=== PATIENT | female | born 1990 | race African-American/Black ===

== ENCOUNTER 2018-08-26 17:16 | Emergency (ER) | payer MEDICAID ==
[~2018-08-26] VITALS: Ht 170.2 cm; Wt 70.0 kg
[~2018-08-26 17:16] MED LIST: DIVA500T3 PO; LAM25 PO
[2018-08-26 17:19] VITALS: BP 104/69
== END 2018-08-26 20:31 | disposition left against medical advice (07) ==
LOC: ER 17:16
DX: Z53.21 Procedure and treatment not carried out due to patient leaving prior to being seen by health care provider (principal)

== ENCOUNTER 2018-09-11 17:00 | Emergency (ER) | payer MEDICAID ==
[~2018-09-11] VITALS: Ht 165.1 cm; Wt 66.0 kg
[2018-09-11] MEDS ORDERED: KETOROLAC 60MG/2ML VIAL IM ONE (19:30)
[2018-09-11 21:10] VITALS: BP 116/72
== END 2018-09-11 21:12 | disposition home or self-care (01) ==
LOC: ER 17:17
DX: S90.111A Contusion of right great toe without damage to nail, initial encounter (principal); G40.909 Epilepsy, unspecified, not intractable, without status epilepticus; Z88.0 Allergy status to penicillin; W22.8XXA Striking against or struck by other objects, initial encounter; Y93.89 Activity, other specified; Y92.89 Other specified places as the place of occurrence of the external cause
CPT/HCPCS: 73660; 81025; 96372; 99284; J1885

== ENCOUNTER 2018-11-03 01:15 | Emergency (ER) | payer MEDICAID ==
[~2018-11-03] VITALS: Ht 182.9 cm; Wt 72.7 kg
[2018-11-03] MEDS ORDERED: LORAZEPAM 2MG/ML CPJ ONE (02:43)
[2018-11-03 07:30] VITALS: BP 131/75
== END 2018-11-03 09:02 | disposition home or self-care (01) ==
LOC: ER 01:15
DX: R56.9 Unspecified convulsions (principal); Z88.0 Allergy status to penicillin
CPT/HCPCS: 81025; 82962; 99283; J2060

== ENCOUNTER 2019-02-13 18:06 | Emergency (ER) | payer MEDICAID ==
[~2019-02-13] VITALS: Ht 165.1 cm; Wt 81.6 kg
[2019-02-13] MEDS ORDERED: IBUPROFEN 600MG TABLET PO ONE (19:00)
[2019-02-13 20:53] VITALS: BP 103/52
== END 2019-02-13 20:54 | disposition home or self-care (01) ==
LOC: ER 18:06
DX: S63.501A Unspecified sprain of right wrist, initial encounter (principal); G40.909 Epilepsy, unspecified, not intractable, without status epilepticus; F12.10 Cannabis abuse, uncomplicated; Z88.0 Allergy status to penicillin; Z88.6 Allergy status to analgesic agent; X58.XXXA Exposure to other specified factors, initial encounter; Y93.89 Activity, other specified; Y92.89 Other specified places as the place of occurrence of the external cause
CPT/HCPCS: 73110; 99283

== ENCOUNTER 2019-04-14 20:19 | Emergency (ER) | payer MEDICAID ==
[~2019-04-14] VITALS: Ht 165.1 cm; Wt 85.0 kg
[2019-04-14] MEDS ORDERED: MORPHINE SULFATE 4 MG/ML CPJ (NOT FOR IM USE) IV STA (20:50)
[2019-04-14] MEDS ORDERED: SODIUM CHLORIDE 0.9% 1,000 ML IV ONE (20:50)
[2019-04-14] MEDS ORDERED: ONDANSETRON HCL 4MG/2ML INJ IV STA (20:50)
[2019-04-14 21:05] VITALS: BP 109/68
[2019-04-14 21:06] LABS: BASOPHILS % 0.9 % (0.0-2.0); EOSINOPHILS % 1.2 % (0.0-5.0); HEMATOCRIT. 40.3 % (36.0-48.0); HEMOGLOBIN. 13.8 g/dL (12.0-16.0); LYMPHOCYTES % 25.4 % (20.0-50.0); MEAN CORPUSCULAR HEMOGLOBIN 31.1 pg (28.0-32.0); MEAN CORPUSCULAR VOLUME 90.9 fL (81.0-99.0); MEAN PLATELET VOLUME 7.3 fl (7.4-10.4); MONOCYTES % 7.7 % (2.0-8.0); NEUTROPHILS % 64.8 % (40.0-76.0); PLATELET 261 x1000/uL (130-400); RED BLOOD CELL COUNT 4.43 mill/uL (4.2-5.4); RED CELL DISTRIBUTION WIDTH 13.4 % (11.6-14.6)
[2019-04-14 21:15] LABS: CLARITY URINE CLEAR (CLEAR); COLOR URINE YELLOW (YELLOW); KETONES URINE NEGATIVE (NEGATIVE); LEUKOCYTE ESTERASE URINE TRACE (NEGATIVE); NITRITE URINE NEGATIVE (NEGATIVE); OCCULT BLOOD URINE NEGATIVE (NEGATIVE); PH URINE 7.5 (4.5-8.0); PROTEIN URINE NEGATIVE (NEGATIVE); SPECIFIC GRAVITY URINE 1.019 (1.005-1.030)
[2019-04-14 21:23] LABS: CHLORIDE 104 mEq/L (98-107)
[2019-04-14 21:25] LABS: HCG SCREEN NEGATIVE
[2019-04-14 21:27] LABS: ETHANOL BLOOD < 10 mg/dL
[2019-04-14 21:36] LABS: CARBAMAZEPINE < 0.5 ug/mL (4-12); PHENOBARBITAL < 2.1 ug/mL (15.0-40.0)
[2019-04-14 21:36] LABS: *AMPHETAMINES SCREEN URINE NEGATIVE (NEGATIVE); *BARBITURATES SCREEN URINE NEGATIVE (NEGATIVE); *BENZODIAZEPINES SCREEN URINE NEGATIVE (NEGATIVE); *COCAINE SCREEN URINE NEGATIVE (NEGATIVE); METHADONE URINE SCREEN NEGATIVE (NEGATIVE); OPIATES URINE SCREEN NEGATIVE (NEGATIVE); PHENCYCLIDINE URINE SCREEN NEGATIVE (NEGATIVE)
[2019-04-14 21:37] LABS: CANNABINOID URINE SCREEN PRESUMTIVE POSITIVE (NEGATIVE)
== END 2019-04-14 23:05 | disposition home or self-care (01) ==
LOC: ER 20:19
DX: G40.909 Epilepsy, unspecified, not intractable, without status epilepticus (principal); N39.0 Urinary tract infection, site not specified; F12.10 Cannabis abuse, uncomplicated; Z88.0 Allergy status to penicillin; Z88.6 Allergy status to analgesic agent
CPT/HCPCS: 36415; 70450; 80053; 80156; 80165; 80184; 80185; 80305; 80320; 81003; 81025; 83690; 84443; 84703; 85025; 93005; 99284; J7030; G0480

== ENCOUNTER 2019-09-09 19:42 | Emergency (ER) | payer SELFPAY ==
[~2019-09-09] VITALS: Ht 167.6 cm; Wt 64.0 kg
[2019-09-09] MEDS ORDERED: SODIUM CHLORIDE 0.9% 1,000 ML IV ONE (20:16)
[2019-09-09] MEDS ORDERED: LEVETIRACETAM 500MG PREMIX 100 ML IV ONE (20:30)
[2019-09-09 20:35] LABS: BASOPHILS % 0.7 % (0.0-2.0); EOSINOPHILS % 2.3 % (0.0-5.0); HEMATOCRIT. 42.2 % (36.0-48.0); HEMOGLOBIN. 14.3 g/dL (12.0-16.0); LYMPHOCYTES % 25.6 % (20.0-50.0); MEAN CORPUSCULAR HEMOGLOBIN 30.7 pg (28.0-32.0); MEAN CORPUSCULAR VOLUME 90.4 fL (81.0-99.0); MEAN PLATELET VOLUME 7.5 fl (7.4-10.4); MONOCYTES % 10.4 % (2.0-8.0); PLATELET 235 x1000/uL (130-400); RED BLOOD CELL COUNT 4.67 mill/uL (4.2-5.4); RED CELL DISTRIBUTION WIDTH 13.9 % (11.6-14.6)
[2019-09-09 20:39] LABS: CHLORIDE 108 mEq/L (98-107)
[2019-09-09 20:43] LABS: HCG SCREEN NEGATIVE
[2019-09-09 20:44] LABS: ETHANOL BLOOD < 10 mg/dL
[2019-09-09 20:46] LABS: CARBAMAZEPINE < 0.5 ug/mL (4-12)
[2019-09-09 20:47] LABS: CREATINE KINASE 75 IU/L (26-192)
[2019-09-09 20:48] LABS: PHENOBARBITAL < 2.1 ug/mL (15.0-40.0)
[2019-09-09 21:45] LABS: CLARITY URINE CLEAR (CLEAR); COLOR URINE YELLOW (YELLOW); KETONES URINE TRACE (NEGATIVE); LEUKOCYTE ESTERASE URINE NEGATIVE (NEGATIVE); NITRITE URINE NEGATIVE (NEGATIVE); OCCULT BLOOD URINE NEGATIVE (NEGATIVE); PH URINE 5.5 (4.5-8.0); PROTEIN URINE 1+ (NEGATIVE); SPECIFIC GRAVITY URINE 1.019 (1.005-1.030); UROBILINOGEN URINE 0.2 E.U./dL (0.2-1.0)
[2019-09-09 21:59] LABS: *BARBITURATES SCREEN URINE NEGATIVE (NEGATIVE)
[2019-09-09 22:00] LABS: *AMPHETAMINES SCREEN URINE NEGATIVE (NEGATIVE); *BENZODIAZEPINES SCREEN URINE NEGATIVE (NEGATIVE); *COCAINE SCREEN URINE NEGATIVE (NEGATIVE); METHADONE URINE SCREEN NEGATIVE (NEGATIVE); OPIATES URINE SCREEN NEGATIVE (NEGATIVE)
[2019-09-09 22:01] LABS: PHENCYCLIDINE URINE SCREEN NEGATIVE (NEGATIVE)
[2019-09-09 22:07] LABS: CANNABINOID URINE SCREEN PRESUMTIVE POSITIVE (NEGATIVE)
[2019-09-10 03:34] VITALS: BP 116/62
== END 2019-09-10 03:35 | disposition home or self-care (01) ==
LOC: ER 19:42
DX: R56.9 Unspecified convulsions (principal); N39.0 Urinary tract infection, site not specified; F12.10 Cannabis abuse, uncomplicated; Z88.0 Allergy status to penicillin; Z88.6 Allergy status to analgesic agent
CPT/HCPCS: 36415; 80053; 80156; 80165; 80184; 80185; 80305; 80320; 81003; 82550; 84443; 84703; 85025; 96365; 99284; J1953; J7030; G0480

== ENCOUNTER 2019-12-08 22:40 | Emergency (ER) | payer OTHER ==
[~2019-12-08] VITALS: Ht 167.6 cm; Wt 88.0 kg
[2019-12-08 22:50] VITALS: BP 137/67
== END 2019-12-09 00:04 | disposition left against medical advice (07) ==
LOC: ER 22:40
DX: T14.8XXA Other injury of unspecified body region, initial encounter (principal); Z53.21 Procedure and treatment not carried out due to patient leaving prior to being seen by health care provider; X58.XXXA Exposure to other specified factors, initial encounter; Y93.89 Activity, other specified; Y92.89 Other specified places as the place of occurrence of the external cause; Y99.8 Other external cause status

== ENCOUNTER 2022-04-19 08:49 | Emergency (ER) | payer MEDICAID, OTHER ==
[~2022-04-19] VITALS: Ht 165.1 cm; Wt 68.0 kg
[2022-04-19] MEDS ORDERED: CLINDAMYCIN HCL 150MG CAPSULE PO SCH (09:15)
[2022-04-19] MEDS ORDERED: LAMOTRIGINE 150MG TABLET PO SCH (09:15)
[2022-04-19] MEDS ORDERED: SODIUM CHLORIDE 0.9% 1,000 ML IV ONE (09:15)
[2022-04-19 10:02] LABS: EOSINOPHILS % 1.8 % (0.0-5.0); HEMATOCRIT. 42.2 % (36.0-48.0); LYMPHOCYTES % 32.7 % (20.0-50.0); MEAN CORPUSCULAR HEMOGLOBIN 30.1 pg (28.0-32.0); MEAN CORPUSCULAR VOLUME 90.8 fL (81.0-99.0); NEUTROPHILS % 54.5 % (40.0-76.0); PLATELET 273 x1000/uL (130-400); RED BLOOD CELL COUNT 4.65 mill/uL (4.2-5.4); RED CELL DISTRIBUTION WIDTH 13.7 % (11.6-14.6)
[2022-04-19 10:10] LABS: CHLORIDE 107 mEq/L (98-107)
[2022-04-19 10:18] LABS: ETHANOL BLOOD < 10 mg/dL
[2022-04-19] MEDS ORDERED: KETOROLAC 15MG/ML VIAL IV ONE (10:30)
[2022-04-19] MEDS ORDERED: DIVALPROEX SODIUM 500MG DR TABLET PO ONE (10:30)
[2022-04-19 10:34] LABS: CLARITY URINE CLOUDY (CLEAR); COLOR URINE YELLOW (YELLOW); KETONES URINE TRACE (NEGATIVE); LEUKOCYTE ESTERASE URINE NEGATIVE (NEGATIVE); NITRITE URINE NEGATIVE (NEGATIVE); OCCULT BLOOD URINE NEGATIVE (NEGATIVE); PH URINE 5.5 (4.5-8.0); PROTEIN URINE TRACE (NEGATIVE); SPECIFIC GRAVITY URINE 1.035 (1.005-1.030); UROBILINOGEN URINE 0.2 E.U./dL (0.2-1.0)
[2022-04-19 10:39] VITALS: BP 117/74
[2022-04-19] MEDS ORDERED: DIVALPROEX SODIUM 500MG DR TABLET PO NR (10:45)
[2022-04-19 10:49] LABS: *AMPHETAMINES SCREEN URINE NEGATIVE (NEGATIVE); *BARBITURATES SCREEN URINE NEGATIVE (NEGATIVE); *BENZODIAZEPINES SCREEN URINE NEGATIVE (NEGATIVE); *COCAINE SCREEN URINE NEGATIVE (NEGATIVE); METHADONE URINE SCREEN NEGATIVE (NEGATIVE); OPIATES URINE SCREEN NEGATIVE (NEGATIVE); PHENCYCLIDINE URINE SCREEN NEGATIVE (NEGATIVE)
[2022-04-19 12:06] LABS: CANNABINOID URINE SCREEN PRESUMTIVE POSITIVE (NEGATIVE)
[2022-04-19] MEDS ORDERED: CLIN-194 MT (12:13)
[2022-04-19] MEDS ORDERED: DIVA500T3 MT ×2 (12:21→17:27)
[2022-04-19] MEDS ORDERED: LAM15 MT (17:27)
== END 2022-04-19 12:51 | disposition home or self-care (01) ==
LOC: ER 08:49
DX: G40.909 Epilepsy, unspecified, not intractable, without status epilepticus (principal); K04.7 Periapical abscess without sinus; Z88.6 Allergy status to analgesic agent; Z88.0 Allergy status to penicillin
CPT/HCPCS: 36415; 70450; 80053; 80305; 80320; 81003; 85025; 96361; 96374; 99284; J1885; J7030; G0480

== ENCOUNTER 2022-04-19 14:19 | Emergency (ER) | payer MEDICAID ==
[~2022-04-19] VITALS: Ht 165.1 cm; Wt 82.0 kg
[~2022-04-19 14:19] MED LIST changes: +CLIN-194 MT; +DIVA500T3 MT
[2022-04-19] MEDS ORDERED: DIVA500T3 MT (17:27)
[2022-04-19] MEDS ORDERED: LAM15 MT (17:27)
[2022-04-19 17:31] VITALS: BP 125/86
== END 2022-04-19 17:35 | disposition home or self-care (01) ==
LOC: ER 14:19
DX: Z76.0 Encounter for issue of repeat prescription (principal); G40.909 Epilepsy, unspecified, not intractable, without status epilepticus; F12.10 Cannabis abuse, uncomplicated; Z88.6 Allergy status to analgesic agent; Z88.0 Allergy status to penicillin
CPT/HCPCS: 99281

== ENCOUNTER 2022-10-03 13:01 | Observation (INO) | payer MEDICAID ==
[~2022-10-03] VITALS: Ht 172.7 cm; Wt 69.0 kg
[~2022-10-03 13:01] MED LIST changes: +LAM15 MT
[2022-10-03 13:02] VITALS: BP 157/87
[2022-10-03] MEDS ORDERED: LEVETIRACETAM 1000MG PREMIX 100 ML IV ONE (13:30)
[2022-10-03 15:45] LABS: BASOPHILS % 0.4 % (0.0-2.0); EOSINOPHILS % 0.4 % (0.0-5.0); HEMATOCRIT. 36.7 % (36.0-48.0); HEMOGLOBIN. 12.3 g/dL (12.0-16.0); LYMPHOCYTES % 8.4 % (20.0-50.0); MEAN CORPUSCULAR HEMOGLOBIN 30.5 pg (28.0-32.0); MEAN PLATELET VOLUME 6.9 fl (7.4-10.4); MONOCYTES % 7.2 % (2.0-8.0); NEUTROPHILS % 83.6 % (40.0-76.0); PLATELET 283 x1000/uL (130-400); RED BLOOD CELL COUNT 4.03 mill/uL (4.2-5.4); RED CELL DISTRIBUTION WIDTH 14.1 % (11.6-14.6)
[2022-10-03] MEDS ORDERED: ATROPINE SULFATE 1MG/10ML SYR IV ONE (15:45)
[2022-10-03 15:58] LABS: CHLORIDE 106 mEq/L (98-107)
[2022-10-03 16:25] LABS: B-HCG QUANTITATIVE 10182 mIU/mL (<3); ETHANOL BLOOD < 10 mg/dL; PHOSPHORUS 2.5 mg/dL (2.5-4.9)
[2022-10-03] MEDS ORDERED: DIVALPROEX SODIUM 500MG DR TABLET PO SCH (18:00)
[2022-10-03] MEDS ORDERED: DIVA-18 PO (18:07)
[2022-10-03] MEDS ORDERED: LAM15 PO (18:07)
[2022-10-03] MEDS ORDERED: LAMOTRIGINE 150MG TABLET PO SCH (21:00)
== END 2022-10-03 18:10 | disposition home or self-care (01) ==
LOC: ER 13:01 → 8 EST LDRP 17:08
PROVIDERS: ADMIT Obstetrics & Gynecology; ATTEND Obstetrics & Gynecology
DX: O99.352 Diseases of the nervous system complicating pregnancy, second trimester (principal); G40.909 Epilepsy, unspecified, not intractable, without status epilepticus; Z3A.22 22 weeks gestation of pregnancy; Z79.899 Other long term (current) drug therapy; Z91.14 Patient's other noncompliance with medication regimen; Z88.0 Allergy status to penicillin; Z88.6 Allergy status to analgesic agent; Z98.890 Other specified postprocedural states
CPT/HCPCS: 36415; 59025; 76805; 80053; 80320; 83735; 84100; 84702; 85025; 99291; G0378; 80305; 99281; G0480

== ENCOUNTER 2023-01-11 13:44 | Observation (INO) | payer MEDICAID, OTHER ==
[~2023-01-11] VITALS: Ht 180.3 cm; Wt 105.0 kg
[~2023-01-11 13:44] MED LIST changes: +DIVA-18 PO; +LAM15 PO
[2023-01-11 16:10] VITALS: BP 116/83
[2023-01-11 17:30] LABS: BASOPHILS % 0.4 % (0.0-2.0); EOSINOPHILS % 0.2 % (0.0-5.0); HEMATOCRIT. 36.2 % (36.0-48.0); HEMOGLOBIN. 12.1 g/dL (12.0-16.0); LYMPHOCYTES % 9.5 % (20.0-50.0); MEAN CORPUSCULAR HEMOGLOBIN 29.8 pg (28.0-32.0); MEAN CORPUSCULAR VOLUME 89.2 fL (81.0-99.0); MEAN PLATELET VOLUME 7.4 fl (7.4-10.4); MONOCYTES % 10.2 % (2.0-8.0); NEUTROPHILS % 79.7 % (40.0-76.0); PLATELET 258 x1000/uL (130-400); RED BLOOD CELL COUNT 4.06 mill/uL (4.2-5.4); RED CELL DISTRIBUTION WIDTH 14.2 % (11.6-14.6)
[2023-01-11 17:38] LABS: CHLORIDE 107 mEq/L (98-107)
[2023-01-11 18:03] LABS: B-HCG QUANTITATIVE 23184 mIU/mL (<3)
[2023-01-11] MEDS ORDERED: DIVALPROEX SODIUM 250MG ER TABLET PO ONE (20:00)
[2023-01-11] MEDS ORDERED: LAMOTRIGINE 150MG TABLET PO SCH (20:00)
[2023-01-11 22:44] LABS: CLARITY URINE CLEAR (CLEAR); COLOR URINE YELLOW (YELLOW); KETONES URINE TRACE (NEGATIVE); LEUKOCYTE ESTERASE URINE 2+ (NEGATIVE); NITRITE URINE NEGATIVE (NEGATIVE); OCCULT BLOOD URINE NEGATIVE (NEGATIVE); PH URINE 6.5 (4.5-8.0); PROTEIN URINE NEGATIVE (NEGATIVE); SPECIFIC GRAVITY URINE 1.009 (1.005-1.030); UROBILINOGEN URINE 0.2 E.U./dL (0.2-1.0)
[2023-01-12] MEDS: LACTATED RINGERS 1,000 ML IV SCH ×2 (01:00→05:34)
[2023-01-12] MEDS ORDERED: PNV1TABL50 MT (05:45)
[2023-01-12] MEDS ORDERED: PREN1TAB78 PO (07:10)
[2023-02-03] MEDS ORDERED: FERR-63 PO (08:13)
[2023-02-03] MEDS ORDERED: IBUP-2030 PO (08:13)
== END 2023-01-12 07:45 | disposition home or self-care (01) ==
LOC: ER 13:44 → 8 EST LDRP 20:52
PROVIDERS: ADMIT Obstetrics & Gynecology; ATTEND Obstetrics & Gynecology
DX: O26.893 Other specified pregnancy related conditions, third trimester (principal); R56.9 Unspecified convulsions; R51.9 Headache, unspecified; R10.30 Lower abdominal pain, unspecified; R10.2 Pelvic and perineal pain; Z3A.37 37 weeks gestation of pregnancy
CPT/HCPCS: 36415; 59025; 76805; 76818; 80053; 81003; 84702; 85025; 86850; 86900; 96360; 96361; 99281; 99284; G0378

== ENCOUNTER 2024-10-20 12:22 | Emergency (ER) | payer MEDICAID, OTHER ==
[~2024-10-20] VITALS: Ht 165.1 cm; Wt 78.0 kg
[~2024-10-20 12:22] MED LIST changes: -CLIN-194 MT; -DIVA-18 PO; -DIVA500T3 MT; +FERR-63 PO; +IBUP-2030 PO; -LAM15 MT; -LAM15 PO; +PREN1TAB78 PO
[2024-10-20 12:26] VITALS: BP 111/80; PULSE 60; RESP 16; TEMP 98.7; O2SAT 98
[2024-10-20] MEDS: IBUPROFEN 800MG TABLET PO ONE (13:48)
[2024-10-20 14:21] LABS: CLARITY URINE CLEAR (CLEAR); COLOR URINE YELLOW (YELLOW); GLUCOSE URINE NEGATIVE (NEGATIVE); KETONES URINE NEGATIVE (NEGATIVE); LEUKOCYTE ESTERASE URINE NEGATIVE (NEGATIVE); NITRITE URINE NEGATIVE (NEGATIVE); OCCULT BLOOD URINE NEGATIVE (NEGATIVE); PROTEIN URINE NEGATIVE (NEGATIVE); SPECIFIC GRAVITY URINE 1.025 (1.005-1.030)
[2024-10-20 14:41] LABS: *AMPHETAMINES SCREEN URINE NEGATIVE (NEGATIVE); *BARBITURATES SCREEN URINE NEGATIVE (NEGATIVE); *BENZODIAZEPINES SCREEN URINE NEGATIVE (NEGATIVE); *COCAINE SCREEN URINE NEGATIVE (NEGATIVE); METHADONE URINE SCREEN NEGATIVE (NEGATIVE); OPIATES URINE SCREEN NEGATIVE (NEGATIVE); PHENCYCLIDINE URINE SCREEN NEGATIVE (NEGATIVE)
[2024-10-20 14:42] LABS: CANNABINOID URINE SCREEN PRESUMPTIVE POSITIVE (NEGATIVE); ECSTASY MDMA SCREEN URINE NEGATIVE (NEGATIVE)
== END 2024-10-20 14:51 | disposition left against medical advice (07) ==
LOC: ER 12:22
DX: M54.9 Dorsalgia, unspecified (principal); F12.10 Cannabis abuse, uncomplicated; Z88.0 Allergy status to penicillin; Z79.899 Other long term (current) drug therapy; Z86.59 Personal history of other mental and behavioral disorders; Z20.822 Contact with and (suspected) exposure to COVID-19
CPT/HCPCS: 80305; 81003; 87426; 87804; 99283

== ENCOUNTER 2025-04-24 15:11 | Emergency (ER) | payer OTHER ==
[~2025-04-24] VITALS: Ht 170.2 cm; Wt 81.6 kg
[~2025-04-24 15:11] MED LIST changes: -PREN1TAB78 PO
[2025-04-24 15:16] VITALS: O2SAT 100
[2025-04-24] MEDS: KETOROLAC 15MG/ML VIAL IV ONE (16:31)
[2025-04-24 16:49] LABS: BASOPHILS % 0.7 % (0.0-2.0); EOSINOPHILS % 1.2 % (0.0-5.0); HEMATOCRIT. 42.3 % (36.0-48.0); HEMOGLOBIN. 13.7 g/dL (12.0-16.0); LYMPHOCYTES % 30.5 % (20.0-50.0); MEAN CORPUSCULAR HEMOGLOBIN 30.1 pg (28.0-32.0); MEAN CORPUSCULAR HGB CONC 32.4 g/dL (31.0-37.0); MEAN CORPUSCULAR VOLUME 92.8 fL (81.0-99.0); MEAN PLATELET VOLUME 7.4 fl (7.4-10.4); MONOCYTES % 6.8 % (2.0-8.0); NEUTROPHILS % 60.8 % (40.0-76.0); PLATELET 235 x1000/uL (130-400); RED BLOOD CELL COUNT 4.56 mill/uL (4.2-5.4); RED CELL DISTRIBUTION WIDTH 14.2 % (11.6-14.6); WHITE BLOOD COUNT 6.3 x1000/uL (4.5-11.0)
[2025-04-24 17:09] LABS: HCG SCREEN NEGATIVE
[2025-04-24 18:31] LABS: CHLORIDE 105 mEq/L (98-107); POTASSIUM 4.3 mEq/L (3.5-5.1); SODIUM 140 mEq/L (136-145)
[2025-04-24 18:33] LABS: CARBON DIOXIDE 30 mEq/L (21-32)
[2025-04-24 18:38] LABS: CREATININE 1.1 mg/dL (0.6-1.0); GLUCOSE 96 mg/dL (70-105); UREA NITROGEN BLOOD 6 mg/dL (9-23); VALPROIC ACID 73.7 ug/mL (50-100)
[2025-04-24 18:40] LABS: ALANINE AMINOTRANSFERASE < 7 IU/L (10-49); ALBUMIN 3.7 g/dL (3.2-4.8); ASPARTATE AMINOTRANSFERASE 12 IU/L (<34); BILIRUBIN DIRECT 0.1 mg/dL (<=3.0); BILIRUBIN TOTAL 0.4 mg/dL (0.1-1.0); PROTEIN TOTAL 6.1 g/dL (6.0-8.3)
[2025-04-24 21:37] VITALS: BP 110/68; PULSE 68; RESP 20; TEMP 36.9; O2SAT 100
== END 2025-04-24 21:49 | disposition home or self-care (01) ==
LOC: ER 15:11
DX: G40.909 Epilepsy, unspecified, not intractable, without status epilepticus (principal); M25.531 Pain in right wrist; Z88.0 Allergy status to penicillin; Z79.899 Other long term (current) drug therapy; Z98.890 Other specified postprocedural states
CPT/HCPCS: 99285; 96374; 80076; 80048; 84703; 80165; 85025; 36415; 73110; 73130; 29125; 93005; J1885